=== PATIENT | male | born 1990 | race Hispanic/Latino ===

== ENCOUNTER 2025-03-27 14:34 | Emergency (ER) | payer SELFPAY ==
[2025-03-27 14:39] VITALS: BP 110/51; PULSE 63; O2SAT 95
--- NOTE | 2025-03-27 14:44 | DI.RAD.S_ITS ---
PROCEDURE: XR CHEST 1V INDICATIONS: Chest Pain TECHNIQUE: One view of the chest was acquired. COMPARISON: None. FINDINGS: Surgical changes and devices: None. Lungs and pleura: Lungs are clear. No pleural effusions or pneumothorax. Low lung volumes. Mediastinum: Mediastinal contours appear normal. Heart size is normal. Bones and chest wall: No suspicious bony lesions. Overlying soft tissues appear unremarkable. IMPRESSION: No acute cardiopulmonary abnormality is seen. Dictated by: Joon Haji M.D. on 03/27/2025 at 15:30 Approved by: Joon Haji M.D. on 03/27/2025 at 15:33
[2025-03-27 14:46] VITALS: BP 110/51; PULSE 62; RESP 16; TEMP 36.8; O2SAT 97; BMI 28.5
--- NOTE | 2025-03-27 14:52 | EKG_ITS ---
[address] [address] Test Date: 2025-03-27 Pat Name: Mark Damon Department: Room: Gender: Male [employer]: : 1990 Requested By: Order Number: [id number] Reading MD: Kimo Worthy Measurements Intervals [place] Rate: 56 P: 38 TX: 124 QRS: 53 QRSD: 90 T: 26 QT: 388 QTc: 374 Interpretive Statements Sinus bradycardia Electronically Signed On 03-28-2025 10:18:33 PDT by Kimo Worthy
[2025-03-27 15:00] VITALS: PULSE 61; RESP 15; O2SAT 96
[2025-03-27 15:26] LABS: Add Manual Diff / Slide Review NO; Hematocrit 45.5 % (41-53); Hemoglobin 15.7 g/dL (13.5-17.5); Lymphocytes Absolute Auto 3000 /uL (1100-4500); Mean Corpuscular HGB Conc 34.6 % (30-36); Mean Corpuscular Hemoglobin 31.2 PG (26-34); Mean Corpuscular Volume 90.2 fL (80-100); Platelet Count 363 X10^3/uL (150-400)
[2025-03-27 15:27] LABS: INR 1.1 (0.9-1.3); Prothrombin Time 12.4 SECONDS (9.4-12.5)
[2025-03-27 15:30] VITALS: PULSE 63; RESP 23; O2SAT 96
[2025-03-27 15:31] LABS: Alanine Aminotransferase 26 IU/L (<50); Albumin 4.6 g/dL (3.5-5.0); Albumin Globulin Ratio 1.8 (1.0-2.8); Alkaline Phosphatase 85 U/L (38-126); Blood Urea Nitrogen 19 mg/dL (9-20); Calcium 9.5 mg/dL (8.4-10.2); Carbon Dioxide 24 mmol/L (22-32); Chloride 105 mmol/L (98-107); Creatine Kinase 122 U/L (55-170); Estimated Glomerular Filt Rate > 60 mL/min (>60); Globulin 2.5 g/dL (1.7-4.1); Glucose 106 mg/dL (70-99); Lipase 51 U/L (23-300); Potassium 4.0 mmol/L (3.4-5.1); Sodium 140 mmol/L (137-145); Total Protein 7.1 g/dL (6.3-8.2)
[2025-03-27 15:56] LABS: HEMOLYSIS 20 (0-50); NT-proBNP (BNP-Adult 18+) < 20 pg/mL (<125); Troponin I < 0.012 ng/mL (0.01-0.034)
[2025-03-27 16:00] VITALS: PULSE 60; RESP 18; O2SAT 97
[2025-03-27 16:30] VITALS: BP 115/72; PULSE 66; RESP 23; O2SAT 97
--- NOTE | 2025-03-27 16:43 | ED.SYNCOPE ---
HPI - Syncope General Chief Complaint: Syncope Stated Complaint: orthostatic hypotension Time Seen by Provider: 03/27/25 14:56 Source: patient and EMS Mode of arrival: EMS Limitations: no limitations History of Present Illness HPI narrative: 34-year-old male with no medical history was up on a ladder earlier today and as soon as he came down the ladder he felt woozy and passed out for almost a minute according to his co-worker. His co-worker called the paramedics and he came in via ambulance. According to the paramedics, he did have orthostatic vital signs. Related Data Allergies Allergy/AdvReac Type Severity Reaction Status Date / Time No Known Drug Allergies Allergy Verified 03/27/25 14:46 Review of Systems Review of Systems ROS Unobtainable: All systems reviewed & are unremarkable except as noted in HPI and below Patient History Social History Smoking Status: Never smoker Smoking Status: Never smoker Exam Initial Vital Signs Initial Vital Signs: Vital Signs Pulse Rate 63 03/27/25 14:39 Blood Pressure 110/51 L 03/27/25 14:39 Pulse Oximetry 95 03/27/25 14:39 General: Patient appears to be in no acute distress, acting appropriately Head: normocephalic, atraumatic, HEENT: Pupils equal round reactive, eyes tracking well, neck supple, no JVD Heart: regular rate and rhythm, no murmurs, rubs, or gallops heard Lungs: clear to auscultation, no adventitious sounds Abdomen: soft , nontender, nondistended, positive bowel sounds Neurological: no focal neurological signs, moving all extremities well, alert and oriented x3, Psych: good judgment ,good insight, mood is normal. Course Course Course Narrative: We will do a syncope workup including an EKG and some labs just in case, but suspect an orthostatic hypotension picture Orders Ordered: ED Orders 03/27/25 14:30 Complete Blood Count AUTO DIFF Stat Comprehensive Metabolic Panel Stat Lipase Stat NT-proBNP (BNP-Adult 18+) Stat Prothrombin Time INR Stat Troponin & CK Cardiac Panel Stat 03/27/25 14:44 XR chest 1V Stat 03/27/25 14:52 EKG-12 Lead Stat Discontinued Medications Aspirin (Aspirin 81 Mg Chew Tab) 324 mg PO NOW ONE Stop: 03/27/25 14:45 Last Admin: 03/27/25 15:21 Dose: Not Given Documented By: SENIA Reevaluation(s) Reevaluation #1: Upon re-evaluation, patient is completely back at baseline and doing well. Vital Signs Vital signs: Vital Signs - 8 hr 03/27/25 14:39 03/27/25 14:39 03/27/25 14:46 Temperature 98.2 F Pulse Rate 63 62 Respiratory Rate 16 Blood Pressure 110/51 L 110/51 L Pulse Oximetry 95 97 Oxygen Delivery Method Room Air 03/27/25 15:00 03/27/25 15:30 Temperature Pulse Rate 61 63 Respiratory Rate 15 23 Blood Pressure Pulse Oximetry 96 96 Oxygen Delivery Method MDM - Syncope Differential Diagnosis Differential diagnosis: Likely syncope due to orthostatic hypotension, vasovagal syncope and dehydration Lab Data 03/27/25 14:30 03/27/25 14:30 Labs: Lab Results 03/27/25 Range/Units 14:30 WBC 8.8 (4.5-11.0) X10^3/uL RBC 5.05 (4.5-5.9) X10^6/uL Hgb 15.7 (13.5-17.5) g/dL Hct 45.5 (41-53) % MCV 90.2 (80-100) fL MCH 31.2 (26-34) PG MCHC 34.6 (30-36) % RDW 13.0 (11.6-14.8) % Plt Count 363 (150-400) X10^3/uL Neut % (Auto) 55.7 (50-75) % Lymph % (Auto) 34.3 (25-40) % [place] % (Auto) 8.0 (3-14) % Eos % (Auto) 1.7 L (2-4) % Baso % (Auto) 0.3 (0-2) % Neut # (Auto) 4900 (5924-7547) /uL Lymph # (Auto) 3000 (0862-2180) /uL [place] # (Auto) 700 (0-900) /uL Eos # (Auto) 100 (0-450) /uL Baso # (Auto) 0 (0-100) /uL PT 12.4 (9.4-12.5) SECONDS INR 1.1 (0.9-1.3) Sodium 140 (137-145) mmol/L Potassium 4.0 (3.4-5.1) mmol/L Chloride 105 (98-107) mmol/L Carbon Dioxide 24 (22-32) mmol/L BUN 19 (9-20) mg/dL Creatinine 1.12 (0.66-1.25) mg/dL Estimated GFR > 60 (>60) mL/min BUN/Creatinine Ratio 17.0 (6-22) Glucose 106 H (70-99) mg/dL Calcium 9.5 (8.4-10.2) mg/dL Total Bilirubin 0.5 (0.2-1.3) mg/dL AST 31 (17-59) IU/L ALT 26 (<50) IU/L Alkaline Phosphatase 85 (38-126) U/L Total Creatine Kinase 122 (55-170) U/L Troponin I < 0.012 (0.01-0.034) ng/mL NT-Pro-B Natriuret Pep < 20 (<125) pg/mL Total Protein 7.1 (6.3-8.2) g/dL Albumin 4.6 (3.5-5.0) g/dL Globulin 2.5 (1.7-4.1) g/dL Albumin/Globulin Ratio 1.8 (1.0-2.8) Lipase 51 (23-300) U/L ECG Data Interpretation: EKG shows a sinus bradycardia, normal axis, normal rhythm, normal DC intervals, normal ST T wave changes. No previous EKG to compare MDM Narrative Medical decision making narrative: Patient is complete stable at this time and back to baseline. We will discharge with orthostatic hypotension as the diagnosis and advised good hydration. Discharge Plan Departure Patient Disposition: Home Clinical Impression: Syncope due to orthostatic hypotension Instructions: DI for Syncope in Adults (Fainting) Activity Restrictions/Additional Instructions: Make sure you stay really well hydrated. Follow-up in the ED if ever have any new syncopal episode. Stand Alone Forms: Patient Portal/API
== END 2025-03-27 16:49 | disposition home or self-care (01) ==
PROVIDERS: Emergency Provider Family Medicine
DX: I95.1 Orthostatic hypotension (principal)
CPT/HCPCS: 71045; 80053; 82550; 83690; 83880; 84484; 85025; 85610; 93005; 99283; 99284